=== PATIENT | male | born 1995 | race Caucasian/White ===

== ENCOUNTER 2020-09-01 15:57 | Emergency (ER) | payer BC, SELFPAY ==
[2020-09-01 16:15] VITALS: BP 137/88; PULSE 97; RESP 14; TEMP 37.1; O2SAT 98; BMI 21.2
--- NOTE | 2020-09-01 16:26 | HMH.EDUTC ---
[facility] [place] Clinical Impression: Exposure to COVID-19 virus Disposition: Home, Self-Care Condition on Discharge: Good Instructions: Preventing the Spread of Coronavirus Discharge Instructions Additional Instructions: Drink plenty of fluids. Take tylenol or ibuprofen for pain or fever. Take the medications as directed. Follow up with your regular doctor. GO TO THE ER FOR ANY WORSENING SYMPTOMS Referrals: Lilly El APRN [Primary Care Provider] - Time of Disposition: 16:30 Medical Decision Making - Medical Records Medical records reviewed: No: I reviewed the patient's medical records. - Aramis Inquiry Pt receiving controlled substance: No Vital Signs: 09/01/20 16:15 09/01/20 16:32 Temperature 98.8 F 98.8 F Temperature Source Oral Pulse Rate 97 H Pulse Rate [Right Brachial] 97 H Respiratory Rate 14 14 Blood Pressure 137/88 Blood Pressure [Right Arm] 137/88 Blood Pressure Mean [Right Arm] 104 Blood Pressure Source [Right Arm] Automatic Cuff Blood Pressure Position [Right Arm] Sitting 02 Sat by Pulse Oximetry 98 Oxygen Delivery Method Room Air Orders (Tests/Meds): ORDERS Category Date Time Status Covid-19 Nasal PCR Sendout [facility] 09/01/20 16:20 [place] [facility] [place] - General Stated complaint: covid test Time Seen by Provider: 09/01/20 16:26 - History of Present Illness Provider Complaint: He states that over the past 1 day he has had a low grade fever and felt bad. He has been exposed to covid. - Related Data Previous Rx's Medication Instructions Recorded Azithromycin [Zithromax 250mg 250 mg PO DIRECTED #6 tab 03/14/19 tab] Allergies Allergy/AdvReac Type Severity Reaction Status Date / Time No Known Allergies Allergy Verified 09/01/20 19:52 [facility] History - Hepatitis A Screen Attestation statement:: This patient has been screened for Hepatitis A risk factors. I have reviewed the patient's past medical history: Yes - Social History Alcohol Intake: never Occupational Status: employed ROS Obtained: Yes All systems reviewed & no additional complaints - Constitutional Constitutional: Reports system reviewed and no additional complaints, except as docu - Eyes Eyes: Reports system reviewed and no additional complaints, except as docu - ENT Ears, Nose, Mouth, and Throat: Reports system reviewed and no additional complaints, except as docu - Cardiovascular Cardiovascular: Reports system reviewed and no additional complaints, except as docu - Respiratory Respiratory: Yes system reviewed and no additional complaints, except as docu - Gastrointestinal Gastrointestingal: Reports: system reviewed and no additional complaints, except as docu Physical Exam - General General appearance: alert, in no apparent distress - Head Head exam: atraumatic, normocephalic, normal inspection - Eye Eye exam: Present: normal appearance, PERRL, EOMI - ENT ENT exam: Present: normal exam, normal oropharynx, mucous membranes moist, TM's normal bilaterally, normal external ear exam - Neck Neck exam: Present: normal inspection, full ROM, trachea midline. Absent: meningismus, lymphadenopathy - Chest Chest inspection: Present: normal inspection, symmetric chest wall rise. Absent: tenderness - Respiratory Respiratory exam: Present: normal lung sounds bilaterally. Absent: respiratory distress - Cardiovascular Cardiovascular exam: Present: regular rate, normal rhythm. Absent: JVD - Abdominal Exam Abdominal exam: Present: soft, normal bowel sounds. Absent: distention, tenderness, guarding - Extremities Exam Extremities exam: Present: normal inspection, full ROM, normal capillary refill. Absent: calf tenderness - Back Exam Back exam: Present: normal inspection. Absent: tenderness - Neurological Exam Neurological exam: Present: alert, oriented X3 - Psychiatric Psychiatric exam: Present: normal affe
[2020-09-01 16:32] VITALS: BP 137/88; PULSE 97; RESP 14; TEMP 37.1; O2SAT 98
[2020-09-03 14:35] LABS: Covid-19 Nasal PCR Sendout Lex NOT DETECTED
== END 2020-09-01 16:36 | disposition home or self-care (01) ==
PROVIDERS: Emergency Provider Nurse Practitioner Family; PCP Nurse Practitioner Family
DX: Z20.828 Contact with and (suspected) exposure to other viral communicable diseases (principal)
CPT/HCPCS: 99201; U0004

== ENCOUNTER 2021-01-09 10:39 | Emergency (ER) | payer BC, SELFPAY ==
[2021-01-09 10:40] VITALS: BP 188/90; PULSE 115; RESP 14; TEMP 36.9; O2SAT 99; BMI 21.9
--- NOTE | 2021-01-09 10:49 | XR_ITS ---
PROCEDURE: XR HAND LT MIN 3V CLINICAL INDICATION: Injury COMPARISON: No exams were available for comparison FINDINGS: There is a faint linear opacity projecting along the palmar and ulnar aspect the interphalangeal joint of the. This measures nearly 3 mm consistent with body. No fracture or dislocation. No lytic or blastic change. IMPRESSION: Small foreign body within the soft tissues at the interphalangeal joint region of thumb. Dictated by: Bharat Iraheta MD 01/09/2021 12:18 Bharat Iraheta MD in [place] 01/09/2021 12:18
--- NOTE | 2021-01-09 11:11 | HMH.EDUTC ---
[facility] [place] Disposition Clinical Impression: Need for Tdap vaccination Cat bite of left hand Qualifiers: Encounter type: initial encounter Qualified Code(s): S61.452A - Open bite of left hand, initial encounter Disposition: Home, Self-Care Condition on Discharge: Good Instructions: DI for Cat Bite Additional Instructions: Keep the wounds clean and dry. Follow up with your regular doctor. Follow up with orthopedics (Dr. Waters). I put in a referral but you need to call her office to schedule at appointment. Take the antibiotics as directed and apply the topical antibiotics as directed. Make sure you stay in contact with the health department regarding the health of the dog. Watch the puncture wounds for signs of worsening infection, such as worsening redness, drainage, swelling, etc. GO TO THE ER FOR ANY WORSENING SYMPTOMS Prescriptions: Amoxicillin/Potassium Clav [Augmentin 875-125 Tablet] 1 tab PO Q12H 10 Days #20 tab Transmission Status: Received by [facility] Mupirocin [Bactroban 2% Ointment 22gm tube] 1 applicatio TP TID 7 Days #1 tube Transmission Status: Received by [facility] Referrals: Lilly El APRN [Primary Care Provider] - Marcelina Waters MD [Physician] - Time of Disposition: 15:10 Medical Decision Making - Medical Records Medical records reviewed: No: I reviewed the patient's medical records. - Aramis Inquiry Pt receiving controlled substance: No Vital Signs: 01/09/21 10:40 01/09/21 11:39 Temperature 98.5 F 98.5 F Temperature Source Oral Pulse Rate 115 H Pulse Rate [Right Brachial] 115 H Respiratory Rate 14 14 Blood Pressure 188/90 H Blood Pressure [Right Arm] 188/90 H Blood Pressure Mean [Right Arm] 122 Blood Pressure Source [Right Arm] Automatic Cuff Blood Pressure Position [Right Arm] Sitting 02 Sat by Pulse Oximetry 99 Oxygen Delivery Method Room Air Orders (Tests/Meds): ED MEDICATIONS Discontinued Medications Generic Name Dose Route Start Last Admin Trade Name Freq PRN Reason Stop Dose Admin Ceftriaxone Sodium 1 gm 01/09/21 11:11 01/09/21 11:15 Ceftriaxone 1gm Vial IM 01/09/21 11:12 1 gm ONCE ONE Administration Protocol Lidocaine HCl 0 ml 01/09/21 11:11 01/09/21 11:15 Lidocaine 1% 5ml Pf Vial IM 01/09/21 11:12 2.1 ml ONCE ONE Administration Tetanus/Reduced Diphtheria/Acell Pertussis 0.5 ml 01/09/21 10:58 01/09/21 11:00 Tet/Diphth/Pert-Adult 0.5ml Syringe IM 01/09/21 10:59 0.5 ml .ONCE ONE Administration - Radiology Data #1 Image(s): Hand Image Reviewed: Yes I reviewed the patient's radiology image, Yes I have reviewed radiologist's interpretation Preliminary Findings: Abnormal PROCEDURE: XR HAND LT MIN 3V CLINICAL INDICATION: Injury COMPARISON: No exams were available for comparison FINDINGS: There is a faint linear opacity projecting along the palmar and ulnar aspect the interphalangeal joint of the. This measures nearly 3 mm consistent with body. No fracture or dislocation. No lytic or blastic change. IMPRESSION: Small foreign body within the soft tissues at the interphalangeal joint region of thumb. Dictated by: Bharat Iraheta MD 01/09/2021 12:18 Bharat Iraheta MD in [place] 01/09/2021 12:18 Medical Decision Narrative: The foreign body that was noted on the x-ray of his hand was not in an area of the cat bite. The skin is intact over this area. 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 He is not tender nor does he have any redness or wounds in this area. [facility] [place] HPI - General Stated complaint: cat bite, possible infection Time Seen by Provider: 01/09/21 11:11 Mode of Arrival: Ambulatory Source of Information: Patient Limitations: No Limitations Description of Symptoms (Recalled from Triage Doc. by RN): PATIENT C/O CAT BI
[2021-01-09 11:39] VITALS: BP 188/90; PULSE 115; RESP 14; TEMP 36.9; O2SAT 99
--- NOTE | 2021-01-09 15:17 | PC.NURSE ---
PATIENT NOTIFIED OF RADIOLOGIST READING OF HAND X-RAY. PATIENT ADVISED TO MAKE FOLLOW-UP APPOINTMENT WITH ORTHO DOCTOR. PATIENT VERBALIZED UNDERSTANDING
== END 2021-01-09 11:44 | disposition home or self-care (01) ==
PROVIDERS: Emergency Provider Nurse Practitioner Family; PCP Nurse Practitioner Family
DX: S61.452A Open bite of left hand, initial encounter (principal); W55.01XA Bitten by cat, initial encounter; Y92.017 Garden or yard in single-family (private) house as the place of occurrence of the external cause; Z23 Encounter for immunization
CPT/HCPCS: 73130; 90471; 90715; 96372; 99202; G0463

== ENCOUNTER → 2021-10-18 17:06 | Outpatient (CLI) | payer BC, SELFPAY | PROVIDERS: Visit Provider Nurse Practitioner | DX: Z20.822 Contact with and (suspected) exposure to COVID-19 (principal) | CPT/HCPCS: C9803; U0003; U0005 ==

== ENCOUNTER → 2022-08-31 07:50 | Outpatient (CLI) | payer BC, SELFPAY ==
--- NOTE | 2022-08-31 | CA_ITS ---
FINAL REPORT CLINICAL HISTORY: HTN FINDINGS: Aorta velocity: 129 cm/sec Right kidney: 11.0 cm. No evidence of hydronephrosis or mass. Right intrarenal RI: 0.56 Right renal artery velocity: 200 cm/sec. Right RAR (Renal artery-Aortic Ratio): 1.6 Left Kidney: 12.3 cm. No evidence of hydronephrosis or mass. Left intrarenal RI: 0.50 Left renal artery velocity: 167 cm/sec. Left RAR (Renal Artery-Aortic Ratio): 1.3 IMPRESSION: Less than 60% right renal artery stenosis. No significant left renal artery stenosis. CT angiogram or postcontrast MR angiogram would be more sensitive for evaluation of possible renal artery stenosis. Reviewed, Interpreted and Dictated by Adonay Khan MD Transcribed by Bruce Abdullahi Authenticated and [facility]
== END ==
PROVIDERS: PCP Nurse Practitioner Family; Visit Provider Nurse Practitioner Family
DX: I10 Essential (primary) hypertension (principal)
CPT/HCPCS: 93976

== ENCOUNTER → 2022-09-20 08:44 | Outpatient (CLI) | payer BC, SELFPAY ==
--- NOTE | 2022-09-20 08:53 | CA_ITS ---
APPROVED REPORT EXAM: Comprehensive 2D, Doppler, and color-flow Echocardiogram Digital Campaign Specialist: Mag Pruitt CRT Ht: 6 ft 3 in Wt: 188lbs BSA: 2.14 BP: 134/91 mmHg Indications: Abnormal ECG, JELLY, HTN 2D Dimensions LVOT 1.96 cm (M/F) 1.5-2.5 LA Volume 27.80 mL LA Volume Index 12.70 mL/m2 (M/F) 16-34 M-Mode Dimensions RVDd 2.47 cm (0.9-2.6) LA Diam 2.48 cm (1.9-4.0) LVDd 4.69 cm (3.5-5.7) Ao Diam 4.00 cm (2.0-3.7) LVDs 3.28 cm (3.5-5.7) IVSd 1.22 cm (0.6-1.1) PWd 1.28 cm (0.6-1.1) EF (Teich) 57.30% FS 30.10% EDV (Teich) 101.90 mL TAPSE 2.14 (<1.7) ESV (Teich) 43.50 mL LV Diastology E Decel Time 183.00 (160-240 msec) E/A Ratio 1.75 MED E' 10.40 (< 7 cm/sec) MED A' 6.50 cm/s E'/MED E' Ratio 6.39 (>14) LAT E' 18.50 (<10 cm/sec) LAT A' 9.30 cm/s E/LAT E' Ratio 3.59 (>14) Aortic Valve AO Peak GR. 5.90 mmHg Mitral Valve MV A Velocity 38.00 (40-130 cm/s) E/A Ratio 1.75 MV Decel. Time 183.00 (160-240 ms) Pulmonary Valve PV Peak Velocity 85.00 (50-150 cm/s) Tricuspid Valve TR P. Velocity 204.00 cm/s RAP Estimate 10.00 mmHg RVSP 26.70 mmHg Left Ventricle Left atrium is normal size, left ventricle is normal size, estimated ejection fraction 55% with no regional wall motion abnormality, diastolic parameters are within normal range. Right Ventricle Right atrium and right ventricle are normal size and contractility. Aortic Valve Aortic valve is grossly normal, there is no aortic stenosis or aortic insufficiency. Mitral Valve Mitral valve is grossly normal. There is no significant mitral regurgitation. Tricuspid Valve Tricuspid valve is grossly normal. There is no tricuspid regurgitation. Pulmonic Valve Pulmonic valve is poorly visualized. Great Vessels Aortic root is normal size. Inferior vena cava is normal size with normal inspiratory collapse. Pericardium No significant pericardial effusion noted. Conclusion 1. Normal left ventricular size preserved left ventricular systolic function, estimated ejection fraction 55% with no regional wall motion abnormality, diastolic parameters are within normal range. 2. No significant pericardial effusion noted. 3. Inferior vena cava is normal size with normal inspiratory collapse. Electronically signed by : Mann Lira MD 09/21/2022 11:58:58
== END ==
PROVIDERS: PCP Nurse Practitioner Family; Visit Provider Nurse Practitioner Family
DX: I10 Essential (primary) hypertension (principal); R94.31 Abnormal electrocardiogram [ECG] [EKG]
CPT/HCPCS: 93306

== ENCOUNTER 2024-07-23 01:49 | Emergency (ER) | payer BC, SELFPAY ==
[2024-07-23 01:50] VITALS: BP 146/97; PULSE 86; RESP 20; TEMP 36.4; O2SAT 100; BMI 22.5
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
[2024-07-23] MEDS: BACITRACIN ZINC OINT 30GM TUBE TP (02:03)
[2024-07-23] MEDS: KETOROLAC 30MG/ML VIAL 30 MG IM (02:09)
[2024-07-23 02:16] VITALS: BP 130/90; PULSE 80; RESP 19; TEMP 36.4; O2SAT 99
== END 2024-07-23 02:30 | disposition home or self-care (01) ==
PROVIDERS: Emergency Provider Emergency Medicine; PCP Internal Medicine Cardiovascular Disease
DX: T20.10XA Burn of first degree of head, face, and neck, unspecified site, initial encounter (principal); T23.101A Burn of first degree of right hand, unspecified site, initial encounter; X03.0XXA Exposure to flames in controlled fire, not in building or structure, initial encounter; T24.022A Burn of unspecified degree of left knee, initial encounter; T24.021A Burn of unspecified degree of right knee, initial encounter
CPT/HCPCS: 96372; 99283; J1885